=== PATIENT | male | born 1985 | race Caucasian/White ===

== ENCOUNTER 2025-05-21 21:37 | Emergency (ER) | payer SELFPAY ==
[~2025-05-21] VITALS: Ht 177.8 cm; Wt 82.0 kg
[2025-05-21 21:41] VITALS: O2SAT 100
[2025-05-22 04:41] VITALS: BP 144/99; PULSE 95; RESP 19; TEMP 36.8; O2SAT 97
== END 2025-05-22 04:52 | disposition home or self-care (01) ==
LOC: ER 21:37
DX: F10.129 Alcohol abuse with intoxication, unspecified (principal); Y90.9 Presence of alcohol in blood, level not specified
CPT/HCPCS: 99285